=== PATIENT | female | born 1985 | race African-American/Black ===

== ENCOUNTER 2018-11-09 20:40 | Emergency (ER) | payer OTHER ==
[~2018-11-09] VITALS: Ht 167.6 cm; Wt 86.2 kg
[2018-11-09 20:56] LABS: URINE CLARITY CLEAR; URINE COLOR YELLOW; URINE SPECIFIC GRAVITY > 1.030 (1.005-1.035)
[2018-11-09 20:57] LABS: URINE BILIRUBIN NEGATIVE (Negative); URINE BLOOD 2+ (Negative); URINE GLUCOSE-RANDOM* NEGATIVE (Negative); URINE KETONES NEGATIVE (Negative); URINE LEUKOCYTES-REFLEX NEGATIVE (Negative); URINE NITRITE-REFLEX NEGATIVE (Negative); URINE PROTEIN (DIPSTICK) NEGATIVE (Negative); URINE UROBILINOGEN 0.2 E.U./dl (0.2-1.0)
[2018-11-09 21:08] LABS: CASTS None Seen /LPF (None Seen); CRYSTALS None Seen /LPF (None Seen); SQUAMOUS 4-10 Moderate /LPF (0-3); URINE RBC 3-10 Few /HPF (0-2)
[2018-11-09 21:09] LABS: URINE WBC-REFLEX 0-5 Rare /HPF (0-5)
[2018-11-09 21:13] LABS: HEMATOCRIT 45.1 % (37.0-47.0); HEMOGLOBIN 15.8 gm/dL (12.0-15.0); MCV 94.2 fL (80.0-100.0); PLATELET COUNT 233 thou/uL (150-400); RBC 4.78 mil/uL (4.20-5.00); RDW 12.9 % (10.5-14.5); WBC 7.4 thou/uL (4.0-11.0)
[2018-11-09 21:31] LABS: CALCIUM 8.6 mg/dL (8.5-10.1); CREATININE 1.2 mg/dL (0.6-1.0)
[2018-11-09 21:35] LABS: ABSOLUTE NEUTROPHILS 2.4 thou/uL (1.4-8.2); ATYPICAL LYMPHS 1 %
[2018-11-09 21:36] LABS: ANISOCYTOSIS 1+
[2018-11-09 21:37] LABS: ALBUMIN 3.5 g/dL (3.4-5.0); TOTAL BILIRUBIN 0.3 mg/dL (<0.1-1.0); TOTAL PROTEIN 7.5 g/dL (6.4-8.2)
[2018-11-09] MEDS ORDERED: ZOFRAN ODT4 MG DISSOLVE (22:33)
[2018-11-09] MEDS ORDERED: PRILOSEC 20 MG20 MG PO (22:33)
[2018-11-09] MEDS ORDERED: NAPROSYN500 MG PO (22:33)
[2018-11-09] MEDS ORDERED: TRAMADOL 50 MG50 MG PO (22:33)
[2018-11-09 23:18] VITALS: BP 123/81
== END 2018-11-09 23:19 | disposition home or self-care (01) ==
LOC: ER 20:40
PROVIDERS: Emergency Medicine
DX: N94.6 Dysmenorrhea, unspecified (principal); M54.5 Low back pain; R10.30 Lower abdominal pain, unspecified; R11.2 Nausea with vomiting, unspecified; J45.909 Unspecified asthma, uncomplicated

== ENCOUNTER 2019-05-24 19:25 | Emergency (ER) | payer OTHER ==
[~2019-05-24] VITALS: Ht 165.1 cm; Wt 89.8 kg
[~2019-05-24 19:25] MED LIST: NAPROSYN500 MG PO; PRILOSEC 20 MG20 MG PO; TRAMADOL 50 MG50 MG PO; ZOFRAN ODT4 MG DISSOLVE
[2019-05-24 19:28] VITALS: BP 117/71
[2019-05-24] MEDS ORDERED: VITAMIN D1000 UNI1 PO (19:33)
[2019-05-24] MEDS ORDERED: IBUPROFEN 800800 M1 PO (19:34)
[2019-05-24] MEDS ORDERED: MOBIC7.5 MG PO (20:32)
[2019-05-24] MEDS ORDERED: MEDROLDOSEPACK PO (20:32)
== END 2019-05-24 20:51 | disposition home or self-care (01) ==
LOC: ER 19:25
DX: M77.9 Enthesopathy, unspecified (principal); J45.909 Unspecified asthma, uncomplicated; F17.210 Nicotine dependence, cigarettes, uncomplicated; F10.10 Alcohol abuse, uncomplicated; Z79.899 Other long term (current) drug therapy

== ENCOUNTER 2021-06-15 10:22 | Emergency (ER) | payer OTHER ==
[~2021-06-15] VITALS: Ht 165.1 cm; Wt 86.2 kg
[~2021-06-15 10:22] MED LIST changes: +IBUPROFEN 800800 M1 PO; +MEDROLDOSEPACK PO; +MOBIC7.5 MG PO; +VITAMIN D1000 UNI1 PO
[2021-06-15] MEDS ORDERED: NAPROSYN500 M1 PO (11:30)
[2021-06-15 11:37] VITALS: BP 120/72
== END 2021-06-15 11:37 | disposition home or self-care (01) ==
LOC: ER 10:22
DX: I88.9 Nonspecific lymphadenitis, unspecified (principal); J45.909 Unspecified asthma, uncomplicated; F17.210 Nicotine dependence, cigarettes, uncomplicated; Z79.1 Long term (current) use of non-steroidal anti-inflammatories (NSAID); Z79.899 Other long term (current) drug therapy

== ENCOUNTER 2021-10-28 15:26 | Emergency (ER) | payer OTHER ==
[~2021-10-28 15:26] MED LIST changes: +NAPROSYN500 M1 PO
== END 2021-10-28 16:01 | disposition left against medical advice (07) ==
LOC: ER 15:26
DX: M79.602 Pain in left arm (principal); Z53.21 Procedure and treatment not carried out due to patient leaving prior to being seen by health care provider